=== PATIENT | male | born 1935 | race Caucasian/White ===

== ENCOUNTER 2019-11-20 15:52 | Outpatient (CLI) | payer MEDICARE, OTHER ==
[2019-11-20 18:17] LABS: Hemoglobin 14.8 g/dL (14.0-18.0); Mean Corpuscular HGB CONC 34.2 g/dL (32.0-36.0); Mean Corpuscular Hemoglobin 31.7 pg (27.0-31.0); Mean Corpuscular Volume 92.7 fL (78.0-98.0); Mean Platelet Volume 8.3 fL (7.4-10.4); Platelet Count 148 thou/uL (130-400); RBC Distribution Width 12.9 % (11.5-14.5); Red Blood Cell (RBC) Count 4.67 mill/uL (4.70-6.10); White Blood Cell (WBC) Count 5.8 thou/uL (4.8-10.8)
[2019-11-20 18:24] LABS: Anion Gap 10 mmol/L (10-20); BUN (Urea Nitrogen) 18 mg/dL (8.4-25.7); Calc. Creatinine Clearance 0 mL/min (70-130); Calcium 8.8 mg/dL (7.8-10.44); Carbon Dioxide 25 mmol/L (23-31); Chloride 108 mmol/L (98-107); Estimated GFR-MDRD 84; Glucose 70 mg/dL (83-110); Potassium 4.3 mmol/L (3.5-5.1); Sodium 139 mmol/L (136-145)
[2019-11-21 13:14] LABS: SARS-CoV-2 MS2 Positive; SARS-CoV-2 N Gene Negative; SARS-CoV-2 S Gene Negative; SARS-CoV-2 orf1ab Negative
== END 2019-11-20 15:53 | disposition home or self-care (01) ==
LOC: LABBT 15:52
PROVIDERS: ATTEND Thoracic Surgery (Cardiothoracic Vascular Surgery)
DX: Z01.812 Encounter for preprocedural laboratory examination (principal); Z11.59 Encounter for screening for other viral diseases; I65.29 Occlusion and stenosis of unspecified carotid artery
CPT/HCPCS: 80048; 85027; U0003; 87635

== ENCOUNTER 2019-11-20 16:00 | Inpatient (IN) | payer MEDICARE ==
[2019-11-24] MEDS ORDERED: Fentanyl 100 MCG/2 ML VIAL ONE (06:33)
[2019-11-24] MEDS ORDERED: Midazolam HCl 2 mg/2 ml Vial ONE (06:33)
[2019-11-24] MEDS ORDERED: Protamine Sulfate 50 MG/5 ML VIAL ONE (06:35)
[2019-11-24] MEDS ORDERED: Heparin 5,000 UNITS/ML VIAL ONE (06:35)
[2019-11-24] MEDS ORDERED: Ondansetron HCl/PF 4 MG/2 ML Vial IVP PRN (07:16)
[2019-11-24] MEDS ORDERED: EPINEPHrine 1 MG/ML AMP ONE (09:00)
[2019-11-24] MEDS ORDERED: Bupivacaine PF 0.5% 30 ML VIAL ONE (09:00)
[2019-11-24] MEDS ORDERED: HYDROcodone/Acetaminophen 5/325 mg Tablet PO PRN ×2 (09:11)
[2019-11-24] MEDS ORDERED: Acetaminophen 325 MG TAB PO PRN (09:11)
[2019-11-24] MEDS ORDERED: Fentanyl 100 MCG/2 ML VIAL SLOW IVP PRN (09:11)
[2019-11-24] MEDS ORDERED: Nitroglycerin 50 MG/250 ML BOT 250 ML IVPB PRN (09:11)
[2019-11-24] MEDS ORDERED: Promethazine HCl 25 MG/ML VIAL IM PRN (09:11)
[2019-11-24] MEDS ORDERED: Ondansetron PF 4 MG/2 ML Vial IVP PRN (09:11)
[2019-11-24] MEDS ORDERED: Norepinephrine 8 MG/0.9% NS 250 ML IVPB PRN (09:11)
[2019-11-24] MEDS ORDERED: hydrALAZINE 20 MG/ML VIAL SLOW IVP PRN (09:11)
[2019-11-24] MEDS ORDERED: Ketorolac Tromethamine 30 MG/ML VIAL ONE (10:21)
[2019-11-24] MEDS ORDERED: Glycopyrrolate 0.2 MG/ML 5 ML SYRINGE ONE (10:21)
[2019-11-24] MEDS ORDERED: Lidocaine 1% PF 5 ML VIAL ONE (10:21)
[2019-11-24] MEDS ORDERED: Ondansetron PF 4 MG/2 ML Vial ONE (10:21)
[2019-11-24] MEDS ORDERED: Vecuronium 10 MG VIAL ONE (10:21)
[2019-11-24] MEDS ORDERED: PROPOFOL 200 MG/20 ML VIAL ONE (10:21)
[2019-11-24] MEDS ORDERED: Dexamethasone 20 MG/5 ML VIAL ONE (10:21)
[2019-11-24] MEDS ORDERED: EPHEDRINE 25 MG/5 ML SYRINGE ONE (10:21)
--- NOTE | 2019-11-24 12:48 | OP ---
DATE OF PROCEDURE: 11/24/2019 PREOPERATIVE DIAGNOSIS: Severe left carotid stenosis. PROCEDURE PERFORMED: Left carotid endarterectomy with internal carotid artery shortening and bovine pericardial patch angioplasty. ANESTHESIA: General. ESTIMATED BLOOD LOSS: 100. DESCRIPTION OF PROCEDURE: After adequate anesthesia had been obtained, ultrasound was used to guide the incision in the internal carotid artery. External carotid artery bifurcation was somewhat high in the neck. The patient was prepped and draped. Incision was made and carried through the platysma. Hypoglossal nerve was identified and avoided, although the dissection carried quite superiorly up under the stylohyoid muscle. Facial vein was ligated and divided. Following heparinization with good ACT level of about 300, the clamps were applied. Arteriotomy was performed. There was good backbleeding and a 12-[place] shunt was placed although a bigger shunt was possible to be placed. The larger shunt was quite stiff and working space was limited. Following shunting, the endarterectomy was performed. There was a large amount of soft plaque as well as hemorrhagic appearance beneath the intima and the soft plaque. After irrigating the area, it was evident that the vessel would probably kink once the patch was placed if it was not shortened and imbricating suture with 6-0 Prolene was placed in a running fashion. Following this shortening, the bovine patch was sewn in place with a running 5-0 Prolene suture. Prior to completing the suture line, the shunt was removed, vessels backflushed and forward flushed, and flow restored up the external and then internal carotid artery. Heparin was partially reversed with protamine and after obtaining good hemostasis, the wound was closed in layers, injecting a small amount of Marcaine with epinephrine into the incision. Job ID: [id number]
[2019-11-24 15:07] VITALS: TEMP 97.5
[2019-11-24] MEDS: Sodium Chloride 0.9% 1,000 ML IV SCH (15:20)
[2019-11-24] MEDS: CEFAZOLIN 2 GM in Premix Bag 1 BAG IVPB SCH (15:20)
[2019-11-24] MEDS: Tamsulosin HCl 0.4 MG CAP PO SCH (20:47)
[2019-11-24] MEDS ORDERED: Losartan 25 MG TAB PO SCH (21:00)
[2019-11-24] MEDS ORDERED: FLUoxetine HCl 20 MG CAP PO SCH (21:00)
[2019-11-25] MEDS: CEFAZOLIN 2 GM in Premix Bag 1 BAG IVPB SCH ×2 (00:03→08:51)
[2019-11-25 04:45] VITALS: BP 157/66
[2019-11-25] MEDS ORDERED: Levothyroxine Sodium 112 MCG TAB PO SCH (06:00)
[2019-11-25] MEDS: Sodium Chloride 0.9% 1,000 ML IV SCH (06:26)
[2019-11-25] MEDS: Tamsulosin HCl 0.4 MG CAP PO SCH (08:50)
[2019-11-25] MEDS ORDERED: Clopidogrel Bisulfate 75 MG TAB PO SCH (09:00)
[2019-11-25] MEDS ORDERED: Aspirin Chewable 81 MG TAB PO SCH (09:00)
== END 2019-11-25 11:54 | disposition home or self-care (01) | DRG 39 ==
LOC: SURG A 11-24 05:57 → 2SE 11-24 14:35
PROVIDERS: ADMIT Thoracic Surgery (Cardiothoracic Vascular Surgery); ATTEND Thoracic Surgery (Cardiothoracic Vascular Surgery)
PROC: 03CJ0ZZ Extirpation of Matter from Left Common Carotid Artery, Open Approach (ICD-10-PCS; principal; 2019-11-24)
PROC: 03UJ0KZ Supplement Left Common Carotid Artery with Nonautologous Tissue Substitute, Open Approach (ICD-10-PCS; 2019-11-24)
DX: I65.22 Occlusion and stenosis of left carotid artery (principal); E03.9 Hypothyroidism, unspecified; I10 Essential (primary) hypertension; E78.5 Hyperlipidemia, unspecified; J30.2 Other seasonal allergic rhinitis; F41.9 Anxiety disorder, unspecified; Z79.01 Long term (current) use of anticoagulants; Z79.82 Long term (current) use of aspirin; Z79.51 Long term (current) use of inhaled steroids; Z79.899 Other long term (current) drug therapy; Z79.890 Hormone replacement therapy
CPT/HCPCS: J0171; J0690; J1100; J1642; J1644; J1885; J2001; J2250; J2405; J2704; J2720; J3010; S0020

== ENCOUNTER 2023-12-03 09:54 | Outpatient (CLI) | payer MEDICARE | END 2023-12-03 09:55 | disposition home or self-care (01) | LOC: LABBT 09:54 | PROVIDERS: ATTEND Student in an Organized Health Care Education/Training Program | DX: Z01.818 Encounter for other preprocedural examination (principal); I65.21 Occlusion and stenosis of right carotid artery | CPT/HCPCS: 71046; 93005; 93010 ==

== ENCOUNTER 2023-12-03 10:00 | Inpatient (IN) | payer MEDICARE ==
[2023-12-03 11:47] LABS: Hematocrit 42.4 % (38.8-50.0); Hemoglobin 14.6 g/dL (13.5-17.5); Mean Corpuscular HGB CONC 34.4 g/dL (32.0-36.0); Mean Corpuscular Hemoglobin 30.6 pg (27.0-33.0); Mean Corpuscular Volume 88.9 fL (81.2-95.1); Mean Platelet Volume 10.1 fL (7.4-10.4); Platelet Count 173 10x3/uL (150-450); RBC Distribution Width 13.4 % (11.5-14.5); Red Blood Cell (RBC) Count 4.77 10x6/uL (4.32-5.72)
[2023-12-03 11:58] LABS: INR-International Normal Ratio 1.1; PTT 26.5 sec (22.0-33.0); Prothrombin Time 12.1 sec (9.5-12.1)
[2023-12-03 12:01] LABS: Anion Gap 11 mmol/L (10-20); BUN (Urea Nitrogen) 28 mg/dL (8.4-25.7); Calc. Creatinine Clearance 0 mL/min (70-130); Calcium 8.8 mg/dL (7.8-10.44); Carbon Dioxide 24 mmol/L (23-31); Chloride 109 mmol/L (98-107); Estimated GFR 85; Glucose 102 mg/dL (83-110); Potassium 4.7 mmol/L (3.5-5.1); Sodium 139 mmol/L (136-145)
[2023-12-06] MEDS ORDERED: Fentanyl 250 MCG/5 ML VIAL ONE (06:29)
[2023-12-06] MEDS ORDERED: PROPOFOL 20 ML ONE (06:29)
[2023-12-06] MEDS ORDERED: Rocuronium Bromide 10 MG/ML (10ML VIAL) ONE (06:29)
[2023-12-06] MEDS ORDERED: PHENYLEPHRINE-NS 100 MCG/ML 10 ML SYRINGE ONE (06:29)
[2023-12-06] MEDS ORDERED: Bupivacaine PF 0.5% 30 ML VIAL ONE (06:38)
[2023-12-06] MEDS ORDERED: EPINEPHrine 1 MG/ML VIAL ONE (06:38)
[2023-12-06] MEDS ORDERED: Heparin 5,000 UNITS/ML VIAL ONE (06:39)
[2023-12-06] MEDS ORDERED: Sodium Chloride 0.9% 100 ML ONE (07:17)
[2023-12-06] MEDS ORDERED: CEFAZOLIN 2 GM VIAL ONE (07:17)
[2023-12-06] MEDS ORDERED: ePHEDrine Sulfate 50 MG/10 ML VIAL ONE (07:49)
[2023-12-06] MEDS ORDERED: Heparin 10,000 UNITS/ 10 ML VIAL ONE (07:58)
[2023-12-06] MEDS ORDERED: SUGAMMADEX SODIUM 200 MG/2 ML VIAL ONE (09:02)
[2023-12-06] MEDS ORDERED: Glycopyrrolate 0.2 MG/ML 5 ML SYRINGE ONE (09:02)
[2023-12-06] MEDS ORDERED: Ondansetron PF 4 MG/2 ML Vial ONE (09:03)
[2023-12-06] MEDS ORDERED: Dexamethasone 4 mg/ml Vial ONE (09:03)
[2023-12-06] MEDS ORDERED: Insulin Regular, Human 100 UNIT/ML 10 ML VIAL SC PRN (09:34)
[2023-12-06] MEDS ORDERED: Ipratropium/Albuterol 3 ML NEB NEB PRN (09:34)
[2023-12-06] MEDS ORDERED: Promethazine HCl 25 MG/ML VIAL IM PRN (09:34)
[2023-12-06] MEDS ORDERED: hydrALAZINE 20 MG/ML VIAL ONE (09:56)
[2023-12-06] MEDS: Ipratropium/Albuterol 3 ML NEB NEB SCH (12:31)
[2023-12-06] MEDS: fentaNYL 50 mcg/mL 1 mL Vial SLOW IVP PRN (12:34)
[2023-12-06] MEDS: Sodium Chloride 0.9% 1,000 ML IV SCH (12:35)
[2023-12-06] MEDS: CEFAZOLIN 2 GM in Sodium Chloride 0.9% 100 ML IVPB SCH (14:05)
[2023-12-06] MEDS: traMADol HCl 50 MG TAB PO PRN (17:55)
[2023-12-06] MEDS: Losartan 25 MG TAB PO SCH (20:09)
[2023-12-06] MEDS: Pantoprazole DR 40 MG TAB PO SCH (20:09)
[2023-12-06] MEDS: Loratadine 10 MG TAB PO SCH (20:09)
[2023-12-06] MEDS ORDERED: Non-Formulary Item 1 EACH (Esomeprazole Magnesium [Nexium 24hr] 20 MG Capsule.Dr) PO SCH (21:00)
[2023-12-06] MEDS ORDERED: Non-Formulary Item 1 EACH (Fexofenadine Hcl [Fexofenadine Hcl] 180 MG Tablet) PO SCH (21:00)
[2023-12-07] MEDS: hydrALAZINE 20 MG/ML VIAL SLOW IVP PRN (01:34)
[2023-12-07 01:36] LABS: #Basophils Less than 0.03 10x3/uL (0.0-0.2); #Eosinphils Less than 0.03 10x3/uL (0.0-0.7); %Basophils 0.1 % (0.0-1.0); %Lymphocytes 6.3 % (21.0-51.0); %Neutrophils 83.2 % (42.0-75.0); Hematocrit 39.5 % (42.0-52.0); Hemoglobin 13.3 g/dL (14.0-18.0); Mean Corpuscular HGB CONC 33.7 g/dL (32.0-36.0); Mean Corpuscular Hemoglobin 30.4 pg (27.0-31.0); Mean Corpuscular Volume 90.2 fL (78.0-98.0); Mean Platelet Volume 10.4 fL (7.4-10.4); Platelet Count 150 10x3/uL (130-400); Red Blood Cell (RBC) Count 4.38 mill/uL (4.70-6.10)
[2023-12-07 01:49] LABS: INR-International Normal Ratio 1.2; PTT 26.6 sec (22.9-36.1); Prothrombin Time 15.3 sec (12.0-14.7)
[2023-12-07 02:00] LABS: ALT (SGPT) 17 U/L (8-55); AST (SGOT) 15 U/L (5-34); Albumin 3.2 g/dL (3.4-4.8); Alkaline Phosphatase 85 U/L (40-110); Anion Gap 15 mmol/L (10-20); BUN (Urea Nitrogen) 22 mg/dL (8.4-25.7); Bilirubin, Total 0.3 mg/dL (0.2-1.2); Calc. Creatinine Clearance 94 mL/min (70-130); Calcium 8.4 mg/dL (7.8-10.44); Carbon Dioxide 18 mmol/L (23-31); Chloride 108 mmol/L (98-107); Estimated GFR 86; Globulin 2.7 g/dL (2.4-3.5); Glucose 128 mg/dL (83-110); Potassium 3.7 mmol/L (3.5-5.1); Protein, Total 5.9 g/dL (5.8-8.1); Sodium 137 mmol/L (136-145)
[2023-12-07 02:05] LABS: Troponin I Less than 0.010 ng/mL (< 0.028)
[2023-12-07] MEDS: Ondansetron PF 4 MG/2 ML Vial IVP PRN (02:45)
[2023-12-07] MEDS: Lactated Ringer's 1,000 ML IV SCH (03:03)
[2023-12-07] MEDS: Aspirin 300 MG Suppository PR SCH (03:03)
[2023-12-07] MEDS: Thiamine HCl 200 MG/2 ML VIAL SLOW IVP SCH (03:03)
[2023-12-07] MEDS: Levothyroxine Sodium 112 MCG TAB PO SCH (06:10)
[2023-12-07] MEDS: Clopidogrel Bisulfate 75 MG TAB PO SCH (08:26)
[2023-12-07] MEDS: Tamsulosin HCl 0.4 MG CAP PO SCH (08:26)
[2023-12-07] MEDS: Multivitamin W/ Minerals 1 TAB PO SCH (08:26)
[2023-12-07] MEDS: Sertraline 25 MG TAB PO SCH (08:26)
[2023-12-07] MEDS: Montelukast Sodium 10 mg Tablet PO SCH (08:27)
[2023-12-07] MEDS ORDERED: Montelukast Sodium 10 mg Tablet PO SCH (09:00)
[2023-12-07] MEDS ORDERED: Levothyroxine Sodium 112 MCG TAB PO SCH (09:00)
[2023-12-07] MEDS ORDERED: Sertraline 25 MG TAB PO SCH (09:00)
[2023-12-07] MEDS ORDERED: Tamsulosin HCl 0.4 MG CAP PO SCH (09:00)
[2023-12-07] MEDS ORDERED: Iopamidol-370 76% 500 ML MDV (1 ML CHARGE) ONE (12:10)
[2023-12-07] MEDS: Labetalol HCl 100 MG/20 ML VIAL SLOW IVP SCH (18:47)
[2023-12-07] MEDS: niCARdipine 25 MG in Sodium Chloride 0.9% 250 ML 250 ML IVPB PRN (21:35)
[2023-12-08] MEDS: Labetalol HCl 100 MG/20 ML VIAL SLOW IVP PRN (00:53)
[2023-12-08 05:38] LABS: Actual Bicarbonate (HCO3a) 23.6 mEq/L (22-28); Base Excess (BEa) -0.9 mEq/L (-2.0 to +3.0); CO2 Tension 38.6 mmHg (35.0-45.0); Calcium, Ionized (arterial) 1.16 mmol/L (1.12-1.30); Carboxyhemoglobin (COHb) 0.6 gm% (0.0-3.0); Hematocrit-ABG 37 % (42.0-52.0); Hemoglobin (Hb) 12.5 g/dL (14.0-18.0); Potassium - ABG Lab 4.04 mmol/L (3.70-5.30); pH, Arterial 7.404 (7.35-7.45)
[2023-12-08 05:40] LABS: Puncture Site RA
[2023-12-08 05:46] LABS: #Basophils Less than 0.03 10x3/uL (0.0-0.2); #Eosinphils Less than 0.03 10x3/uL (0.0-0.7); %Basophils 0.2 % (0.0-1.0); %Lymphocytes 8.3 % (21.0-51.0); %Monocytes 12.5 % (0.0-10.0); %Neutrophils 78.8 % (42.0-75.0); Hematocrit 35.9 % (42.0-52.0); Hemoglobin 11.7 g/dL (14.0-18.0); Mean Corpuscular HGB CONC 32.6 g/dL (32.0-36.0); Mean Corpuscular Hemoglobin 29.4 pg (27.0-31.0); Mean Corpuscular Volume 90.2 fL (78.0-98.0); Mean Platelet Volume 10.8 fL (7.4-10.4); Platelet Count 149 10x3/uL (130-400); RBC Distribution Width 14.6 % (11.5-14.5); Red Blood Cell (RBC) Count 3.98 mill/uL (4.70-6.10)
[2023-12-08] MEDS: niCARdipine 50 MG, Admixture Fee 1 EACH in Sodium Chloride 0.9% 250 ML 230 ML IVPB PRN (05:46)
[2023-12-08 06:29] LABS: Anion Gap 10 mmol/L (10-20); BUN (Urea Nitrogen) 19 mg/dL (8.4-25.7); Calc. Creatinine Clearance 85 mL/min (70-130); Calcium 8.2 mg/dL (7.8-10.44); Carbon Dioxide 21 mmol/L (23-31); Cardiac Risk 3.3 (Less than 4.5); Chloride 106 mmol/L (98-107); Cholesterol 127 mg/dl (< 200 Desired); Estimated GFR 84; Glucose 126 mg/dL (83-110); HDL Cholesterol 39 mg/dL (>60 Neg Risk); LDL Cholesterol, Calculated 80 mg/dL; Sodium 133 mmol/L (136-145); Triglycerides 42 mg/dL (Less than 150)
[2023-12-08] MEDS: Thiamine 100 MG TAB PO SCH (12:01)
[2023-12-08] MEDS: Aspirin Chewable 81 MG TAB PO SCH (12:01)
[2023-12-08] MEDS ORDERED: Iopamidol 370 76% 100 ML VIAL ONE (14:42)
[2023-12-08] MEDS: Multivits W-Minerals Liquid 15 ML UDCUP PER TUBE SCH (15:28)
[2023-12-08] MEDS: Milk Of Magnesia 30 ML UDCUP PO PRN (15:28)
[2023-12-08] MEDS: Pantoprazole 40 MG VIAL IVP SCH (20:33)
[2023-12-09 08:56] LABS: #Basophils Less than 0.03 10x3/uL (0.0-0.2); #Eosinphils Less than 0.03 10x3/uL (0.0-0.7); %Basophils 0.2 % (0.0-1.0); %Eosinophils 0.2 % (0.0-10.0); %Lymphocytes 9.8 % (21.0-51.0); %Monocytes 12.1 % (0.0-10.0); %Neutrophils 77.4 % (42.0-75.0); Hematocrit 37.3 % (42.0-52.0); Hemoglobin 12.2 g/dL (14.0-18.0); Mean Corpuscular HGB CONC 32.7 g/dL (32.0-36.0); Mean Corpuscular Volume 91.9 fL (78.0-98.0); Mean Platelet Volume 10.5 fL (7.4-10.4); Platelet Count 130 10x3/uL (130-400); RBC Distribution Width 14.1 % (11.5-14.5); Red Blood Cell (RBC) Count 4.06 mill/uL (4.70-6.10)
[2023-12-09] MEDS: Multivits W-Minerals Liquid 15 ML UDCUP PER TUBE SCH (09:02)
[2023-12-09 09:15] LABS: Anion Gap 13 mmol/L (10-20); BUN (Urea Nitrogen) 20 mg/dL (8.4-25.7); Calc. Creatinine Clearance 102 mL/min (70-130); Calcium 8.4 mg/dL (7.8-10.44); Carbon Dioxide 22 mmol/L (23-31); Chloride 109 mmol/L (98-107); Estimated GFR 90; Glucose 118 mg/dL (83-110); Sodium 140 mmol/L (136-145)
[2023-12-09 10:41] LABS: O2 Tension (PaO2), arterial 50.6 mmHg (> 60.0)
[2023-12-09] MEDS: Acetaminophen 325 MG TAB PO PRN (11:08)
[2023-12-09 23:10] LABS: Bacteria/HPF None Seen HPF (None Seen); Bilirubin Negative (Negative); Blood, Urine 1+ (Negative); Clarity Turbid (Clear); Glucose, Urine (Dipstick) Normal (Negative); Ketone, Urine Negative (Negative); Leukocyte 75 Leu/uL (Negative); Nitrite Negative (Negative); Protein, Urine (Dipstick) 20 mg/dL (Neg-Trace); RBC/HPF 21-50 HPF (0-3); Specific Gravity, Urine 1.022 (1.002-1.036); Squamous Epithelial None Seen HPF (0-3); Urobilinogen Normal mg/dL (Less than 2); pH, Urine 7.5 (5.0-9.0)
[2023-12-10] MEDS: Melatonin 3 MG TAB PER TUBE PRN (21:02)
[2023-12-11] MEDS: LevoFLOXacin 500 mg/D5W 500 MG in Premix 1 BAG IVPB SCH (05:51)
[2023-12-11 11:34] VITALS: BMI 29.4
[2023-12-11] MEDS: Tamsulosin HCl 0.4 MG CAP PO SCH (20:14)
[2023-12-13] MEDS: hydrALAZINE 20 MG/ML VIAL SLOW IVP SCH (12:15)
[2023-12-13 14:37] VITALS: BMI 29.4
[2023-12-14 05:01] VITALS: TEMP 98
[2023-12-14 09:17] VITALS: BP 145/71
== END 2023-12-14 13:08 | disposition home or self-care (01) | DRG 39 ==
LOC: SURG A 12-06 06:11 → CCU 12-06 11:48 → IMCU/EMU 12-10 08:08 → 2SE 12-11 17:25
PROVIDERS: ADMIT Student in an Organized Health Care Education/Training Program; ATTEND Student in an Organized Health Care Education/Training Program
PROC: 03CK0ZZ Extirpation of Matter from Right Internal Carotid Artery, Open Approach (ICD-10-PCS; principal; 2023-12-06)
PROC: 03UK0KZ Supplement Right Internal Carotid Artery with Nonautologous Tissue Substitute, Open Approach (ICD-10-PCS; 2023-12-06)
PROC: 07B10ZX Excision of Right Neck Lymphatic, Open Approach, Diagnostic (ICD-10-PCS; 2023-12-06)
PROC: 3E033XZ Introduction of Vasopressor into Peripheral Vein, Percutaneous Approach (ICD-10-PCS; 2023-12-06)
PROC: 4A033R1 Measurement of Arterial Saturation, Peripheral, Percutaneous Approach (ICD-10-PCS; 2023-12-08)
PROC: 5A0935A Assistance with Respiratory Ventilation, Less than 24 Consecutive Hours, High Flow/Velocity Cannula (ICD-10-PCS; 2023-12-08)
DX: I63.231 Cerebral infarction due to unspecified occlusion or stenosis of right carotid arteries (principal); F41.9 Anxiety disorder, unspecified; F32.A Depression, unspecified; R09.02 Hypoxemia; I10 Essential (primary) hypertension; K21.9 Gastro-esophageal reflux disease without esophagitis; E03.9 Hypothyroidism, unspecified; Z79.899 Other long term (current) drug therapy; Z79.82 Long term (current) use of aspirin; I25.10 Atherosclerotic heart disease of native coronary artery without angina pectoris; E78.5 Hyperlipidemia, unspecified; R33.9 Retention of urine, unspecified; N40.1 Benign prostatic hyperplasia with lower urinary tract symptoms
CPT/HCPCS: 36415; 36416; 70450; 70496; 70498; 70551; 71275; 74018; 74230; 80048; 80053; 80061; 81001; 82805; 84443; 84484; 85025; 85027; 85610; 85730; 86850; 86900; 86901; 87086; 88184; 88307; 88341; 88342; 93005; 93010; 93306; 94640; C1768; C9113; J0171; J0360; J0665; J1100; J1642; J1644; J1956; J2405; J2704; J3010; J3411; J3490; J7050; J7120; J7620; Q9967

== ENCOUNTER 2024-01-26 11:22 | Outpatient (CLI) | payer MEDICARE | END 2024-01-26 11:23 | disposition home or self-care (01) | LOC: SCSRAD 11:22 | PROVIDERS: ATTEND Family Medicine | DX: M89.8X1 Other specified disorders of bone, shoulder (principal); M95.8 Other specified acquired deformities of musculoskeletal system; W19.XXXA Unspecified fall, initial encounter | CPT/HCPCS: 71120 ==

== ENCOUNTER 2024-06-05 16:11 | Outpatient (CLI) | payer MEDICARE | END 2024-06-05 16:12 | disposition home or self-care (01) | LOC: SCSRAD 16:11 | PROVIDERS: ATTEND Family Medicine | DX: M79.642 Pain in left hand (principal); S62.327A Displaced fracture of shaft of fifth metacarpal bone, left hand, initial encounter for closed fracture ==